=== PATIENT | male | born 1985 | race Caucasian/White ===

== ENCOUNTER 2018-04-16 23:38 | Emergency (ER) | payer OTHER, BC ==
[~2018-04-16] VITALS: Ht 182.9 cm; Wt 127.0 kg
[~2018-04-16 23:38] MED LIST: NAPROSYN375 MG PO; NO HOME MEDS
[2018-04-17] MEDS ORDERED: IBUPROFEN600 MG PO (01:03)
[2018-04-17 01:32] VITALS: BP 159/82
== END 2018-04-17 01:32 | disposition home or self-care (01) | DRG 563 ==
LOC: ED 23:38
DX: S52.571A Other intraarticular fracture of lower end of right radius, initial encounter for closed fracture (principal); S60.512A Abrasion of left hand, initial encounter; S60.511A Abrasion of right hand, initial encounter; S50.311A Abrasion of right elbow, initial encounter; I10 Essential (primary) hypertension; F17.210 Nicotine dependence, cigarettes, uncomplicated; W19.XXXA Unspecified fall, initial encounter; Y93.89 Activity, other specified; Y92.89 Other specified places as the place of occurrence of the external cause; Y99.0 Civilian activity done for income or pay